=== PATIENT | male | born 1945 | race Caucasian/White ===

== ENCOUNTER → 2017-07-28 | Outpatient (CLI) | payer OTHER ==
[~2017-07-28] MED LIST: ASPEC325 PO; CLOP1TAB15 PO; FLNIN NAE; LEUTEIN PO; METR1GEL3 TOP; NTRGSL/4 UT; SIMV40TA2 PO; lisinopril PO
== END | disposition home or self-care (01) ==
LOC: C.PATHSPEC 16:22
PROVIDERS: ATTEND Physician Assistant
DX: C44.519 Basal cell carcinoma of skin of other part of trunk (principal); L82.1 Other seborrheic keratosis

== ENCOUNTER → 2017-09-29 | Outpatient (CLI) | payer OTHER | END | disposition home or self-care (01) | LOC: C.PATHSPEC 17:57 | PROVIDERS: ATTEND Physician Assistant | DX: C44.91 Basal cell carcinoma of skin, unspecified (principal) ==

== ENCOUNTER 2018-01-06 10:10 | Observation (INO) | payer OTHER ==
[~2018-01-06] VITALS: Ht 180.3 cm; Wt 96.4 kg
[2018-01-06] MEDS ORDERED: ASPIRIN 81 MG CHEW PO STA (10:45)
--- NOTE | 2018-01-06 10:50 | EMERGENCY ROOM VISIT NOTE ---
History Report prepared by Cassie: Nito Bello Under the Supervision of: Dr. Jacobo Nieto M.D. First contact with patient: 10:34 Chief Complaint: CHEST PAIN Stated Complaint: CHEST PAIN History of Present Illness The patient is a 72 year old male who presents to the Emergency Room with complaints of intermittent chest pain that began about a week ago--the symptoms first started with walking. Patient states he also gets intermittent episodes of "tingling" over his whole body with a "lump" feeling in his throat. Patient states these episodes last for about an hour. He states the "lump" does not go away with swallowing. Patient states his chest pain radiates towards the left side of his neck. He states the pain is "3-4/10" in severity and states his pain today is worse than when the pain began originally. He states he also has a "stiff" back. Patient adds he gets warm, diaphoretic, and a "flutter in his upper stomach" during these episodes. Patient states he took one Nitro this morning which gave him relief for 15 minutes. He states he then had another "tingling" episode which caused him to take another Nitro. He states his last Nitro was an hour and a half ago. Patient states he takes Plavix, Losartan, and 81mg Aspirin. He states he took all his medications this morning. Patient adds he had a cardiac stent placed in 2011. Patient states he was at [facility] days ago for similar symptoms and was told to "see how it goes and to keep his Nitro close by". Patient states he has a stress test scheduled in January. He denies any SOB and nausea. Source of History: patient Onset: A week ago Position: neck, chest Quality: other ("tingling") Timing: intermittent Modifying Factors (Relieving): other (Nitro) Associated Symptoms: + diaphoresis, + back pain, No SOB, No nausea Review of Systems See HPI for pertinent positives & negatives. A total of 10 systems reviewed and were otherwise negative. Past Medical & Surgical Medical Problems: (1) Anxiety (2) CAD (coronary artery disease) (3) Chest pain (4) Dyslipidemia (5) Gallbladder problem (6) GERD (gastroesophageal reflux disease) (7) H/O blood clots (8) HTN (hypertension) (9) PSVT (paroxysmal supraventricular tachycardia) Surgical Problems: (1) H/O heart artery stent (2) H/O sinus surgery (3) Hx of cholecystectomy (4) Hx of urethral stricture Family History Diabetes mellitus FH: heart disease FHx: lung disease Social History Smoking Status: Never Smoker Alcohol Use: none Drug Use: none Marital Status: Occupation Status: employed Current/Historical Medications Scheduled Aspirin (Aspirin 81), 1 TAB PO DAILY Atorvastatin (Lipitor), 1 TAB PO HS Clopidogrel (Plavix), 75 MG PO QAM Fluticasone Propionate (Nasal) (Flonase Allergy Relief), 2 SPRAYS ANTONIO DAILY Losartan Potassium (Cozaar), 25 MG PO DAILY Metoprolol Succinate (Metoprolol Succinate ER), 25 MG PO DAILY Nitroglycerin (Nitrostat), 0.4 MG UT PRN Pantoprazole (Pantoprazole Sodium), 1 TAB PO DAILY Sertraline (Zoloft), 1 TAB PO DAILY Allergies Coded Allergies: No Known Allergies (Verified , 01/06/18) Physical Exam Vital Signs Date Time Temp Pulse Resp B/P (MAP) Pulse Ox O2 Delivery O2 Flow Rate FiO2 01/06/18 12:00 52 14 119/73 94 Room Air 01/06/18 11:05 58 01/06/18 10:54 96 Room Air 01/06/18 10:54 66 24 130/77 94 Room Air 01/06/18 10:15 36.8 69 18 165/77 95 Room Air Physical Exam GENERAL: Patient is in no acute distress. HEENT: No acute trauma, normocephalic atraumatic, mucous membranes moist, no nasal congestion, no scleral icterus. NECK: No stridor, no adenopathy, no meningismus, trachea is midline. LUNGS: Clear to auscultation bilaterally, no wheeze, no rhonchi, breath sounds equal. HEART: Without murmurs gallops or rubs, regular rate and rhythm. ABDOMEN: Soft, nontender, bowel sounds positive, no hernias, no peritonitis. EXTREMITIES: No cyanosis or edema, full range of motion of all the joints without pain or difficulty, no signs for acute trauma. NEUROLOGIC: Oriented x 3, no acute motor or sensory deficits, no focal weakness. SKIN: No rash, no jaundice, no diaphoresis. Medical Decision & Procedures ER Provider Diagnostic Interpretation: Radiology results as stated below per my review and radiologist interpretation: CHEST ONE VIEW PORTABLE CLINICAL HISTORY: CHEST PAIN dyspnea COMPARISON STUDY: 10/18/2005 FINDINGS: The bones soft tissues and hemidiaphragms are normal. The cardiomediastinal silhouette is normal. The lungs are clear. The pulmonary vasculature is normal. IMPRESSION: Negative chest. The above report was generated using voice recognition software. It may contain grammatical, syntax or spelling errors. Electronically signed by: Romie Sanchez M.D. 01/06/2018 11:03 AM Laboratory Results 01/06/18 10:35 01/06/18 10:35 Test 01/06/18 10:35 Red Blood Count 4.85 M/uL (4.7-6.1) Mean Corpuscular Volume 89.3 fL (80-100) Mean Corpuscular Hemoglobin 31.3 pg (25-34) Mean Corpuscular Hemoglobin Concent 35.1 g/dl (32-36) RDW Standard Deviation 44.4 fL (36.4-46.3) RDW Coefficient of Variation 13.6 % (11.5-14.5) Mean Platelet Volume 10.3 fL (7.4-10.4) Prothrombin Time 10.7 SECONDS (9.0-12.0) Prothromb Time International Ratio 1.0 (0.9-1.1) Activated Partial Thromboplast Time 24.1 SECONDS (21.0-31.0) Partial Thromboplastin Ratio 0.9 Anion Gap 4.0 mmol/L (3-11) Est Creatinine Clear Calc Drug Dose 86.0 ml/min Estimated GFR () 92.4 Estimated GFR (Non- 79.8 BUN/Creatinine Ratio 14.7 (10-20) Calcium Level 8.5 mg/dl (8.5-10.1) Total Bilirubin 1.2 mg/dl (0.2-1) Aspartate Amino Transf (AST/SGOT) 15 U/L (15-37) Alanine Aminotransferase (ALT/SGPT) 24 U/L (12-78) Alkaline Phosphatase 67 U/L (45-117) Total Protein 7.0 gm/dl (6.4-8.2) Albumin 3.9 gm/dl (3.4-5.0) Globulin 3.1 gm/dl (2.5-4.0) Albumin/Globulin Ratio 1.3 (0.9-2) Laboratory results reviewed by me. Medications Administered Medications (Trade) Dose Ordered Sig/Dottie Route Start Time Stop Time Status Last Admin Dose Admin Aspirin (Aspirin Chew) 324 mg NOW STAT PO 01/06/18 10:45 01/06/18 10:47 DC 01/06/18 10:53 324 MG ECG Per My Interpretation Indication: chest pain Rate (beats per minute): 63 Rhythm: sinus rhythm Findings: PAC, other (No St elevation, no PVCs) ED Course 1036: The patient was evaluated in room B3B. A complete history and physical exam was performed. 1045: Aspirin 324mg PO 1147: I reevaluated the patient and updated him on his findings. 1201: Upon reexamination the patient will be further evaluated. I discussed results and treatment plan with the patient. He verbalizes agreement and understanding. I spoke with Korin BUCKLEY of the [facility]. We discussed the patient's results and findings. The patient will be evaluated by Korin BUCKLEY for further management. Medical Decision Differential Diagnosis: Angina, [place], dysrhythmia, anemia, electrolyte imbalance, reflux, esophageal spasm , and PE. There is no leukocytosis or concerning anemia. No significant electrolyte abnormality, kidney failure or hepatitis. There is no coagulopathy. EKG shows a sinus rhythm with a PAC, no acute ischemia. Cardiac enzyme testing 1 is not consistent with acute cardiac injury. Chest film does not show pneumonia, mediastinal widening or pneumothorax. Patient was given oral aspirin for cardioprotective purposes. He is resting comfortably. The patient presents with chest pain which is escalating over the last week. His symptoms have been primarily exertional. He has a coronary history. I do think a hospital stay is warranted, further cardiac workup is needed. I did speak to the patient and case management. The on-call hospitalist was consulted. Medication Reconcilliation Current Medication List: was personally reviewed by me Blood Pressure Screening Patient's blood pressure: Normal blood pressure Blood pressure disposition: Did not require urgent referral Consults Time Called: 1152 Consulting Physician: Korin BUCKLEY - [facility] Returned Call: 1154 Discussed the patient's case. The patient will be evaluated for further management. Impression Primary Impression: Precordial chest pain Scribe Attestation The scribe's documentation has been prepared under my direction and personally reviewed by me in its entirety. I confirm that the note above accurately reflects all work, treatment, procedures, and medical decision making performed by me. Departure Information Dispostion Being Evaluated By Hospitalist Referrals No Doctor, Assigned (PCP) Forms Call Back Authorization, HOME CARE DOCUMENTATION FORM, IMPORTANT VISIT INFORMATION Patient Instructions My [facility]
[2018-01-06 10:55] LABS: HEMATOCRIT 43.3 % (42-52); HEMOGLOBIN 15.2 g/dL (14.0-18.0); MEAN CELL VOLUME 89.3 fL (80-100); MEAN CORPUSCULAR HEMOGLOBIN 31.3 pg (25-34); MEAN CORPUSCULAR HGB CONC 35.1 g/dl (32-36); MEAN PLATELET VOLUME 10.3 fL (7.4-10.4); PLATELET COUNT 158 K/uL (130-400); RED CELL DISTRIBUTION WIDTH CV 13.6 % (11.5-14.5); RED CELL DISTRIBUTION WIDTH SD 44.4 fL (36.4-46.3); WHITE BLOOD COUNT 6.84 K/uL (4.8-10.8)
[2018-01-06 11:04] LABS: PTT PATIENT 24.1 SECONDS (21.0-31.0)
--- NOTE | 2018-01-06 11:04 | DIAGNOSTIC IMAGING REPORT ---
CHEST ONE VIEW PORTABLE CLINICAL HISTORY: CHEST PAIN dyspnea COMPARISON STUDY: 10/18/2005 FINDINGS: The bones soft tissues and hemidiaphragms are normal. The cardiomediastinal silhouette is normal. The lungs are clear. The pulmonary vasculature is normal. IMPRESSION: Negative chest. The above report was generated using voice recognition software. It may contain grammatical, syntax or spelling errors. Electronically signed by: Romie Sanchez M.D. 01/06/2018 11:03 AM Dictated Date/Time: 01/06/2018 11:02 AM
[2018-01-06 11:24] LABS: ALBUMIN 3.9 gm/dl (3.4-5.0); ALKALINE PHOSPHATASE 67 U/L (45-117); ALT/SGPT 24 U/L (12-78); AST/SGOT 15 U/L (15-37); BLOOD UREA NITROGEN 14 mg/dl (7-18); CALCIUM 8.5 mg/dl (8.5-10.1); CARBON DIOXIDE 27 mmol/L (21-32); CREATININE 0.96 mg/dl (0.60-1.40); GLUCOSE 102 mg/dl (70-99); POTASSIUM 3.9 mmol/L (3.5-5.1); SODIUM 137 mmol/L (136-145)
[2018-01-06] MEDS ORDERED: LOSA1TAB PO (11:34)
[2018-01-06] MEDS ORDERED: TPRSR25 PO (11:34)
[2018-01-06] MEDS ORDERED: FLUT0.15 NAE (11:34)
[2018-01-06] MEDS ORDERED: ASPECOTC PO (11:34)
[2018-01-06 12:50] VITALS: O2SAT 95
[2018-01-06] MEDS ORDERED: ONDANSETRON INJ 2 MG/ML 2 ML VIAL IV PRN (13:15)
[2018-01-06] MEDS ORDERED: ACETAMINOPHEN 325 MG TAB PO PRN (13:15)
[2018-01-06] MEDS ORDERED: ALUMINUM/MAGNESIUM/SIMETH (MAALOX MAX) 30 ML UDC PO PRN (13:15)
[2018-01-06] MEDS ORDERED: NITROGLYCERIN 0.4 MG SL PER TAB CHARGE SL PRN (13:15)
[2018-01-06] MEDS ORDERED: POLYETHYLENE (MIRALAX) 17 GM PACK PO PRN (13:15)
[2018-01-06 13:30] VITALS: BP 140/88; PULSE 62; TEMP 36.7; Ht 180.3 cm; Wt 96.4 kg
[2018-01-06] MEDS ORDERED: LPT40 PO (13:50)
[2018-01-06] MEDS ORDERED: SERT25TA PO (13:50)
[2018-01-06] MEDS ORDERED: PANT1TAB4 PO (13:50)
[2018-01-06] MEDS ORDERED: ASPI-435 PO (13:50)
[2018-01-06] MEDS ORDERED: IV FLUIDS COMPLETED PRN (14:00)
[2018-01-06] MEDS: ENOXAPARIN 40 MG/0.4 ML SYR SC SCH (14:24)
--- NOTE | 2018-01-06 14:25 | History and Physical ---
History & Physical Date & Time of Service: Jan 06, 2018 at 13:51 Chief Complaint: Chest Pain Primary Care Physician: Luis A Ortega M.D.(YAMILETH) History of Present Illness Source: patient, clinic records, hospital records Pt is 72 y/o M with PMH CAD s/p stent to LAD in 2011, PSVT, HTN, HLD, GERD, anxiety presented to ER with c/o CP. Patient states today at approximately 9 AM was at work when started with burning sensation to chest and throat. Also reports sensation of something stuck in his throat. He took 1 nitro with some relief and took second nitro approximately 15-20 minutes later with resolution of symptoms. Patient has been symptom-free since. Patient reports the past week has been having intermittent chest burning and aching sensation to throat and neck. Patient states 1 week ago was walking at work when he became dizzy, diaphoretic and had burning sensation to throat. Also reports last week was push mowing the lawn and developed chest heaviness in the neck. Patient states he tried nitro at that time without relief. Reports symptoms resolved after 1-2 hours of rest. States had another episode when he was sitting and he thinks when he started doing something "forgot about it or it went away". Patient states 5 days ago he was sitting when he felt a palpitation that lasted a couple seconds. He did not have any associated CP/SOB /dizziness at that time. He denies any other recurrent palpitations since. He states he has been able to eat and drink without any dysphasia or dysphagia or food bolus sensation. The intermittent neck & chest sensation over the past week occurs not in relation to eating. He reports prior to his stent placement in past he had similar sensation to throat. History stress echo 06/2016: No evidence of ischemia, EF: 55-59%. Denies fever/chills, diaphoresis, N/V/D/C, PUENTE, syncope, vision changes, SOB, orthopnea, cough, sore throat, choking, otalgia, rhinorrhea, abdominal pain, paresthesias, extremity weakness, extremity edema, rashes, urinary symptoms, weight loss. Pt was seen at cardiology clinic 01/03/18 and is scheduled for stress test in a couple of weeks. Past Medical/Surgical History Medical Problems: (1) Anxiety Status: Chronic (2) CAD (coronary artery disease) Status: Chronic (3) Dyslipidemia Status: Chronic (4) Gallbladder problem Status: Resolved (5) GERD (gastroesophageal reflux disease) Status: Chronic (6) HTN (hypertension) Status: Chronic (7) PSVT (paroxysmal supraventricular tachycardia) Status: Chronic Surgical Problems: (1) H/O heart artery stent Permanent Comment: stent to LAD - 2011 Status: Resolved (2) H/O sinus surgery Status: Resolved (3) Hx of cholecystectomy Status: Resolved (4) Hx of urethral stricture Permanent Comment: Surgical repair at [facility] [place] 2016 Status: Resolved Family History Diabetes mellitus FH: heart disease FHx: lung disease Social History Smoking Status: Never Smoker Smokeless Tobacco Use: No Alcohol Use: 1 beer a week Drug Use: none Marital Status: Housing status: lives with family Occupational Status: employed Immunizations History of Influenza Vaccine: Yes Influenza Vaccine Date: Jun 30, 2010 History of Tetanus Vaccine?: UTD Tetanus Immunization Date: Jun 30, 2010 History of Pneumococcal: Yes Pneumococcal Date: Aug 10, 2000 History of Hepatitis B Vaccine: Unknown Hepatitis Immunization Date: October 19, 1999 Allergies Coded Allergies: No Known Allergies (Verified , 01/06/18) Home Medications Scheduled Aspirin (Aspirin 81), 1 TAB PO DAILY Atorvastatin (Lipitor), 1 TAB PO HS Clopidogrel (Plavix), 75 MG PO QAM Fluticasone Propionate (Nasal) (Flonase Allergy Relief), 2 SPRAYS ANTONIO DAILY Isosorbide Mononitrate (Isosorbide Mononitrate ER), 15 MG PO QAM Losartan Potassium (Cozaar), 25 MG PO DAILY Metoprolol Succinate (Metoprolol Succinate ER), 25 MG PO DAILY Nitroglycerin (Nitrostat), 0.4 MG UT PRN Pantoprazole (Pantoprazole Sodium), 1 TAB PO DAILY Sertraline (Zoloft), 1 TAB PO DAILY Review of Systems See HPI for pertinent positives & negatives. All other systems reviewed and were otherwise negative Physical Exam Vital Signs Date Time Temp Pulse Resp B/P (MAP) Pulse Ox O2 Delivery O2 Flow Rate FiO2 01/06/18 13:30 36.7 62 18 140/88 Room Air 01/06/18 12:50 51 18 128/75 95 01/06/18 12:00 52 14 119/73 94 Room Air 01/06/18 11:05 58 8/2/18 10:54 96 Room Air 01/06/18 10:54 66 24 130/77 94 Room Air 01/06/18 10:15 36.8 69 18 165/77 95 Room Air General Appearance: WD/WN, no apparent distress Head: normocephalic, atraumatic Eyes: normal inspection, sclerae normal ENT: hearing grossly normal, pharynx normal, + pertinent finding (mucous membranes moist) Neck: supple, trachea midline Respiratory/Chest: chest non-tender, lungs clear, normal breath sounds, no respiratory distress Cardiovascular: regular rate, rhythm, no murmur Abdomen/GI: normal bowel sounds, non tender, soft Extremities/Musculoskelatal: normal capillary refill, no pedal edema, normal range of motion Neurologic/Psych: alert, normal mood/affect, oriented x 3 Skin: warm/dry Diagnostics Laboratory Results Results Past 24 Hours Test 01/06/18 10:35 Range/Units White Blood Count 6.84 4.8-10.8 K/uL Red Blood Count 4.85 4.7-6.1 M/uL Hemoglobin 15.2 14.0-18.0 g/dL Hematocrit 43.3 42-52 % Mean Corpuscular Volume 89.3 80-100 fL Mean Corpuscular Hemoglobin 31.3 25-34 pg Mean Corpuscular Hemoglobin Concent 35.1 32-36 g/dl RDW Standard Deviation 44.4 36.4-46.3 fL RDW Coefficient of Variation 13.6 11.5-14.5 % Platelet Count 158 130-400 K/uL Mean Platelet Volume 10.3 7.4-10.4 fL Prothrombin Time 10.7 9.0-12.0 SECONDS Prothromb Time International Ratio 1.0 0.9-1.1 Activated Partial Thromboplast Time 24.1 21.0-31.0 SECONDS Partial Thromboplastin Ratio 0.9 Sodium Level 137 136-145 mmol/L Potassium Level 3.9 3.5-5.1 mmol/L Chloride Level 106 98-107 mmol/L Carbon Dioxide Level 27 21-32 mmol/L Anion Gap 4.0 3-11 mmol/L Blood Urea Nitrogen 14 7-18 mg/dl Creatinine 0.96 0.60-1.40 mg/dl Est Creatinine Clear Calc Drug Dose 86.0 ml/min Estimated GFR () 92.4 Estimated GFR (Non- 79.8 BUN/Creatinine Ratio 14.7 10-20 Random Glucose 102 70-99 mg/dl Calcium Level 8.5 8.5-10.1 mg/dl Total Bilirubin 1.2 0.2-1 mg/dl Aspartate Amino Transf (AST/SGOT) 15 15-37 U/L Alanine Aminotransferase (ALT/SGPT) 24 12-78 U/L Alkaline Phosphatase 67 45-117 U/L Troponin I < 0.015 0-0.045 ng/ml Total Protein 7.0 6.4-8.2 gm/dl Albumin 3.9 3.4-5.0 gm/dl Globulin 3.1 2.5-4.0 gm/dl Albumin/Globulin Ratio 1.3 0.9-2 Diagnostic Radiology CXR: IMPRESSION: Negative chest. EKG EKG: sinus rhythm, rate 63, PACs Impression Assessment and Plan Pt is 72 y/o M with PMH CAD s/p stent to LAD in 2011, PSVT, HTN, HLD, GERD, anxiety presented to ER with c/o intermittent chest and throat/neck pressure/ burning sensation, occurs with exertion or rest. CHEST PAIN R/O ACS. Risk factors: HTN, hyperlipidemia, CAD This morning around 9AM took 2 SL nitro with relief of symptoms and no recurrent CP. Denies SOB. In ER vitals stable, initial troponin negative, no EKG changes. Given 324mg ASA. -Monitor Vitals -Repeat EKG in am -Will trend troponin -echo -lipid panel, continue statin -continue ASA, plavix, metoprolol -Nitro prn CP and repeat EKG for CP -NPO after midnight for possible stress test in am -Cardiology consult HTN Stable -continue losartan, metoprolol H/O PSVT current sinus rhythm -tele to monitor DYSLIPIDEMIA -continue atorvastatin GERD -continue PPI ANXIETY -continue sertraline DVT Prophylaxis -lovenox SQ Admit tele Full Code as per discussion with pt Follows with Dr Ortega for routine care Pt was seen with Dr Meredith. See addendum Attending Addendum Pt was seen and examined. Agreed with Cydney SMITH exam, assessment and plan. 72 y/o M with PMH CAD s/p stent to LAD in 2011, PSVT, HTN, HLD, GERD, anxiety presented to ER with c/o chest pain. Exam General- No acute distress Head- atraumatic Eyes- PERRL, EOMI ENT- oropharynx clear Neck- supple, no JVD Lungs- No wheezing Heart- regular rhythm Abdomen- normal bowel sounds, soft Extremities- no calf tenderness Neuro- alert, oriented x 3; PERRL, EOMI; no facial palsy Skin- warm & dry A/p CHEST PAIN R/O ACS. Risk factors: HTN, hyperlipidemia, CAD initial troponin negative EKG showed no ischemic changes Will Trend troponin Repeat EKG in am Will check echo in am Continue ASA, plavix, metoprolol and statin Will keep NPO after midnight for possible stress test in am Cardiology consult Please refer to Cydney PAC documentation for other problems. MD Viri Advanced Directives Existing Living Will: No Existing Power of Switchboard Operator Supervisor: No Resuscitation Status VTE Prophylaxis Will order VTE Prophylaxis: Yes Additional Copies To Luis A Ortega M.D.(YAMILETH)
--- NOTE | 2018-01-06 15:44 | Cardiology Consultation ---
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 The patient's recent cardiac symptoms date back to about a week ago. At work, his desk is about 400 feet from their laboratory. He was walking to discuss something with a coworker and felt lightheadedness, heavy perspiration, and a lump in his throat. Symptoms subsequently improved with resting. In the meantime he notes that he has had waxing and waning symptoms. He describes one day he will have a day where everything is normal, and on another day, he will feel generalized lightheadedness, weakness, and an intermittent throat discomfort. He states that the throat discomfort is reminiscent of his past anginal symptoms that prompted his cardiac stent in 2011. This morning he woke up with a burning sensation in his chest and throat. He took a sublingual nitroglycerin with apparent relief. By the time he arrived to the emergency room he was free of symptoms. EKG and troponins have been negative 1 thus far. He is feeling completely asymptomatic at present during my assessment of him in room 210. The patient's primary electrical timing device calibrator is Dr. Nito Betancur. Patient has a history of coronary heart disease and underwent drug-eluting stent to the LAD in 2011 at [facility]. He has a known diagonal branch that has been jailed at the time of the initial stent placement in August,. Due to recurrent angina, the patient underwent cardiac catheterization with plain balloon angioplasty to the diagonal vessel at [facility] in November,. The cardiac catheterization at [facility] was performed via the right femoral artery. Past Medical/Surgical History Problem List: Medical Problems: (1) Anxiety (2) CAD (coronary artery disease) (3) Chest pain (4) Dyslipidemia (5) Gallbladder problem (6) GERD (gastroesophageal reflux disease) (7) H/O blood clots (8) HTN (hypertension) (9) PSVT (paroxysmal supraventricular tachycardia) Surgical Problems: (1) H/O heart artery stent (2) H/O sinus surgery (3) Hx of cholecystectomy (4) Hx of urethral stricture History Social History: The patient is a lifelong non-smoker Denies alcohol use Family History: Family history of heart disease in his father and maternal grandfather. Review Of Systems Point review systems is reviewed and is negative with the exception of that above Allergies Coded Allergies: No Known Allergies (Verified , 01/06/18) Medications Reported Home Medications Medications Dose Route/Sig Max Daily Dose Days Date Category Zoloft (Sertraline HCl) 25 Mg Tab 1 Tab PO DAILY 30 01/06/18 Reported Pantoprazole Sodium (Pantoprazole) 40 Mg Tab 1 Tab PO DAILY 01/06/18 Reported Lipitor (Atorvastatin Calcium) 40 Mg Tab 1 Tab PO HS 01/06/18 Reported Aspirin 81 (Aspirin) 81 Mg Tab 1 Tab PO DAILY 01/06/18 Reported Metoprolol Succinate ER (Metoprolol Succinate) 25 Mg Tabcr 25 Mg PO DAILY 01/06/18 Reported Cozaar (Losartan Potassium) 25 Mg Tab 25 Mg PO DAILY 01/06/18 Reported Flonase Allergy Relief (Fluticasone Propionate (Nasal)) 50 Mcg/Act Spr 2 Sprays ANTONIO DAILY 01/06/18 Reported Nitrostat (Nitroglycerin) 0.4 Mg Tab 0.4 Mg UT PRN 08/30/11 Reported Plavix (Clopidogrel Bisulfate) 75 Mg Tab 75 Mg PO QAM 08/30/11 Reported Physical Exam Vital Signs (Last 8hrs): Last 8 Hrs Date Time Temp Pulse Resp B/P (MAP) Pulse Ox O2 Delivery O2 Flow Rate FiO2 01/06/18 14:15 Room Air 01/06/18 13:30 36.7 62 18 140/88 Room Air 01/06/18 12:50 51 18 128/75 95 01/06/18 12:00 52 14 119/73 94 Room Air 01/06/18 11:05 58 01/06/18 10:54 96 Room Air 01/06/18 10:54 66 24 130/77 94 Room Air 01/06/18 10:15 36.8 69 18 165/77 95 Room Air General Appearance: Alert and Oriented x3. NAD. Head: Normocephalic Atraumatic. Eyes: PERRLA, EOMI, conjunctiva and sclera clear Neck: Supple. No carotid bruits noted. No JVD. No HJD. Respiratory: Breath sounds clear to auscultation bilaterally. No w/r/r. Cardiovascular: Reg rate and rhythm. S1 and S2 noted. No murmurs, rubs, gallops. PMI non displace. Abdomen: Normal bowel sounds, soft nontender. no abdominal bruits. Extremities: No edema, no clubbing or cyanosis. distal pulses 2/4 bilaterally. Neuro: No focal deficits. Psychiatric: Normal affect. Data Last 24 Hours Test 01/06/18 10:35 White Blood Count 6.84 K/uL Red Blood Count 4.85 M/uL Hemoglobin 15.2 g/dL Hematocrit 43.3 % Mean Corpuscular Volume 89.3 fL Mean Corpuscular Hemoglobin 31.3 pg Mean Corpuscular Hemoglobin Concent 35.1 g/dl RDW Standard Deviation 44.4 fL RDW Coefficient of Variation 13.6 % Platelet Count 158 K/uL Mean Platelet Volume 10.3 fL Prothrombin Time 10.7 SECONDS Prothromb Time International Ratio 1.0 Activated Partial Thromboplast Time 24.1 SECONDS Partial Thromboplastin Ratio 0.9 Sodium Level 137 mmol/L Potassium Level 3.9 mmol/L Chloride Level 106 mmol/L Carbon Dioxide Level 27 mmol/L Anion Gap 4.0 mmol/L Blood Urea Nitrogen 14 mg/dl Creatinine 0.96 mg/dl Est Creatinine Clear Calc Drug Dose 86.0 ml/min Estimated GFR () 92.4 Estimated GFR (Non- 79.8 BUN/Creatinine Ratio 14.7 Random Glucose 102 mg/dl Calcium Level 8.5 mg/dl Total Bilirubin 1.2 mg/dl Aspartate Amino Transf (AST/SGOT) 15 U/L Alanine Aminotransferase (ALT/SGPT) 24 U/L Alkaline Phosphatase 67 U/L Troponin I < 0.015 ng/ml Total Protein 7.0 gm/dl Albumin 3.9 gm/dl Globulin 3.1 gm/dl Albumin/Globulin Ratio 1.3 Initial EKG revealed sinus rhythm without ST changes. Echocardiogram performed at the bedside reviewed independently revealed normal left ventricular wall motion and normal LVEF. Mild mitral regurgitation was present. Assessment & Plan Impression: 72-year-old male Recent throat and chest tightness History of coronary heart disease status post drug-eluting stent to the LAD in 2011, and subsequent plain balloon angioplasty to a jailed diagonal, then plain balloon angioplasty to the diagonal to place through the previously placed stent in November, History of past paroxysmal supraventricular tachycardia Dyslipidemia Hypertension Recommendations: The patient had previously been seen in our office several days ago on 01/03/18 for similar symptoms. In the meantime, he presented to the hospital via the emergency room. Cardiac enzymes are negative 1. We will plan on observing the patient on the telemetry floor with serial cardiac enzymes and EKG. Patient will be made n.p.o. after midnight except for medications. Resting echocardiogram revealed no resting wall motion abnormalities. It is noted that in June 2010 he had an outpatient stress echocardiogram with no evidence of inducible ischemia having achieved 9 minutes of exercise under standard Lukasz protocol. Further workup will be determined based on his progress perhaps with stress testing versus cardiac catheterization.
[2018-01-06] MEDS ORDERED: PERFLUTREN LIPID MICROSPHERE (DEFINITY) IV ONE (15:54)
--- NOTE | 2018-01-06 17:25 | ECHOCARDIOGRAM REPORT ---
*NOTICE TO RECEIVING CONSTITUTION PARTY AGENCY This information is strictly Confidential and protected under [place] law. [place] law prohibits you from making any further disclosure of this information unless further disclosure is expressly permitted by the written consent of the person to whom it pertains or is authorized by law. A general authorization for the release of medical or other information is not sufficient for this purpose. Hospital accepts no responsibility if the information is made available to any other person, INCLUDING THE PATIENT. Interpretation Summary * Name: Hannah NAPOLES Study Date: 01/06/2018 03:19 PM BP: 140/88 mmHg * Patient Location: .2E\S\E210\S\1 HR: 62 * : 1945 (M/d/yyyy) Gender: Male Height: 71 in * Age: 72 yrs Ethnicity: CA Weight: 215 lb * Ordering Physician: Cydney Davenport * Referring Physician: Self, Referred * Performed By: Eric Gamez RCS * * Reason For Study: Chest Pain * BSA: 2.2 m2 * -- Conclusions -- * Echocardiogram is technically adequate for the referral indication. * There is mild concentric left ventricular hypertrophy. * The left ventricular wall motion is normal. * Ejection Fraction = 60-65%. * There is mild mitral regurgitation. * Grade 2 diastolic dysfunction is present. Procedure Details * A complete two-dimensional transthoracic echocardiogram was performed (2D, M-mode, Doppler and color flow Doppler). * A contrast injection of Definity was performed to improve assessment of LV function. * Contrast was injected into an intravenous site in the right arm. * One vial of Definity ultrasound contrast was diluted in normal saline to a total volume of 10 ml. A total of '1' ml of solution was administered during imaging. * Lot # [id number] of Definity utilized for procedure. * Expiration date 1jul. * The attending nurse who injected the contrast agent was good Reeder RN. Left Ventricle * The left ventricle is normal in size. * There is mild concentric left ventricular hypertrophy. * Ejection Fraction = 60-65%. * Left ventricular systolic function is normal. * The left ventricular wall motion is normal. Right Ventricle * The right ventricular cavity was not well-visualized but was of grossly normal size and systolic function on limited visualization. Atria * The left atrial size is normal. * Right atrial size is normal. * There is no evidence of atrial septal defect, but resolution does not allow assessment for a patent foramen ovale. Mitral Valve * The mitral valve is normal. * There is no mitral valve stenosis. * There is mild mitral regurgitation. Tricuspid Valve * The tricuspid valve is normal. * There is no tricuspid stenosis. * Significant tricuspid regurgitation is absent. Aortic Valve * The aortic valve is trileaflet. * Aortic stenosis is absent. * There is no significant aortic regurgitation. Pulmonic Valve * The pulmonary valve is not well seen, but the Doppler examination is normal without significant regurgitation or stenosis. Great Vessels * The aortic root and proximal ascending aorta are normal sized. Pericardium/Pleural * There is no pericardial effusion. Great Vessels * Normal inferior vena cava diameter and respiratory variation suggests normal central venous pressure. Left Ventricular Diastolic Function * Grade 2 diastolic dysfunction is present. MMode 2D Measurements and Calculations IVSd 1.1 cm IVSs 1.5 cm LVIDd 5.3 cm LVIDs 3.5 cm LVPWd 1.1 cm LVPWs 1.3 cm IVS/LVPW 1.0 FS 34.6 % EDV(Teich) 135.2 ml ESV(Teich) 49.7 ml EF(Teich) 63.3 % EDV(cubed) 148.6 ml ESV(cubed) 41.6 ml EF(cubed) 72.0 % % IVS thick 33.9 % % LVPW thick 17.2 % LV mass(C)d 237.7 grams LV mass(C)dI 109.3 grams/m\S\2 LV mass(C)s 175.8 grams LV mass(C)sI 80.8 grams/m\S\2 SV(Teich) 85.5 ml SI(Teich) 39.3 ml/m\S\2 SV(cubed) 107.0 ml SI(cubed) 49.2 ml/m\S\2 Ao root diam 3.8 cm Ao root area 11.3 cm\S\2 ACS 2.0 cm LA dimension 3.8 cm asc Aorta Diam 3.5 cm LA/Ao 0.99 EDV(MOD-sp4) 124.7 ml ESV(MOD-sp4) 47.8 ml EF(MOD-sp4) 61.6 % EDV(MOD-sp2) 120.1 ml ESV(MOD-sp2) 21.8 ml EF(MOD-sp2) 81.8 % SV(MOD-sp4) 76.9 ml SI(MOD-sp4) 35.4 ml/m\S\2 SV(MOD-sp2) 98.3 ml SI(MOD-sp2) 45.2 ml/m\S\2 Doppler Measurements and Calculations MV E max yesi 85.9 cm/sec MV A max yesi 56.9 cm/sec MV E/A 1.5 MV P1/2t max yesi 86.4 cm/sec MV P1/2t 74.5 msec MVA(P1/2t) 3.0 cm\S\2 MV dec slope 340.0 cm/sec\S\2 MV dec time 0.25 sec Ao V2 max 111.7 cm/sec Ao max PG 5.0 mmHg Ao max PG (full) 1.2 mmHg LV V1 max PG 3.8 mmHg LV V1 max 97.8 cm/sec PA V2 max 83.0 cm/sec PA max PG 2.8 mmHg PI max yesi 134.8 cm/sec PI max PG 7.3 mmHg PI dec slope 86.7 cm/sec\S\2 PI P1/2t 455.4 msec TR max yesi 206.1 cm/sec
[2018-01-06 18:48] VITALS: BP 128/63; PULSE 54; TEMP 37; O2SAT 95
[2018-01-06 19:51] VITALS: BP 161/81; PULSE 59; TEMP 36.7; O2SAT 95
[2018-01-06] MEDS ORDERED: ATORVASTATIN 40 MG TAB PO SCH (21:00)
[2018-01-06 23:35] VITALS: BP 130/71; PULSE 51; TEMP 36.9; O2SAT 95
[2018-01-07 03:34] VITALS: BP 130/71; PULSE 56; TEMP 36.8; O2SAT 95
[2018-01-07 06:19] LABS: HEMATOCRIT 41.4 % (42-52); HEMOGLOBIN 14.5 g/dL (14.0-18.0); MEAN CORPUSCULAR HEMOGLOBIN 31.2 pg (25-34); MEAN PLATELET VOLUME 10.2 fL (7.4-10.4); PLATELET COUNT 139 K/uL (130-400); RED CELL DISTRIBUTION WIDTH CV 13.7 % (11.5-14.5); RED CELL DISTRIBUTION WIDTH SD 44.4 fL (36.4-46.3); WHITE BLOOD COUNT 6.34 K/uL (4.8-10.8)
[2018-01-07 07:04] LABS: CALCIUM 8.5 mg/dl (8.5-10.1); CREATININE 0.96 mg/dl (0.60-1.40)
[2018-01-07 07:58] VITALS: BP 122/73; PULSE 59; TEMP 36.9; O2SAT 96
[2018-01-07] MEDS ORDERED: PANTOprazole SOD 40 MG TAB PO SCH (09:00)
[2018-01-07] MEDS ORDERED: SERTRALINE HCL 50 MG TAB PO SCH (09:00)
[2018-01-07] MEDS ORDERED: LOSARTAN POTASSIUM 25 MG TAB PO SCH (09:00)
[2018-01-07] MEDS ORDERED: METOPROLOL SUCC 25MG EXT REL TAB PO SCH (09:00)
[2018-01-07] MEDS ORDERED: CLOPIDOGREL BISULFATE 75 MG TAB PO SCH (09:00)
[2018-01-07] MEDS ORDERED: ASPIRIN 81 MG ECTAB PO SCH (09:00)
[2018-01-07] MEDS ORDERED: FLUTICASONE PROPIONATE NA SPR 16 GM BTL NAE SCH (09:00)
--- NOTE | 2018-01-07 10:26 | Exercise Stress Test Report ---
Exercise Stress Test Report Exercise Stress Test Report Date of Service: 01/07/18 Exercise Stress Test Report Non ischemic stress echo, having completed 9 minutes on a Lukasz protocol.
--- NOTE | 2018-01-07 10:31 | Cardiology Follow-Up ---
Subjective General Date of Service: Jan 07, 2018. Chief Complaint: follow up chest pain Pt evaluation today including: conversation w/ patient, physical exam History of Present Illness The patient is a 72 year old male seen prior to , during, and post stress echo. No recurrence of throat or chest discomfort overnight. Serial troponin negative. Allergies Coded Allergies: No Known Allergies (Verified , 01/06/18) Social History Smoking Status: Never Smoker Hx Tobacco Use In Past Year?: No Hx Alcohol Use - Type And Amou: Yes (OCCASIONAL BEER) Hx Substance Use - Type And Am: No Problem List Medical Problems: (1) Precordial chest pain Status: Acute Physical Exam Vital Signs Last Vital Signs Documentation Date Time Temp Pulse Resp B/P (MAP) Pulse Ox O2 Delivery O2 Flow Rate FiO2 01/07/18 07:58 36.9 59 16 122/73 (89) 96 Room Air Physical Exam Constitutional: Level of Distress: NAD Head: normocephalic Neck: supple, trachea midline Lungs: Auscultation: no wheezing, no rales/crackles, no rhonchi Cardiovascular: Heart Auscultation: RRR, no murmurs, no rubs, no gallops Abdomen: Inspection & Palpation: soft, non-distended Extremities: no edema Neurologic: Gait & Station: pertinent finding (no focal deficits ) Assessment and Plan Assessment and Plan Impression: 1. Atypical chest , throat pain. Negative serial EKGs and negative troponins. Non ischemic [place], having achieved high peak work load. Symptoms not reproduced. Plan: Perhaps has microvascular dysfunction, however , stress test suggest no hemodynamically significant epicardial coronary obstruction. Recommend adding Imdur, 30 mg, 1/2 tablet daily in am for 1 week , then increase to a full 30 mg tablet daily as tolerated. Will cancel outpt stress test. Keep follow up visit with Dr Betancur as scheduled for 02/03. Laboratory Results Last 24 Hours Test 01/06/18 10:35 01/06/18 16:12 01/06/18 22:31 01/07/18 06:02 White Blood Count 6.84 K/uL 6.34 K/uL Red Blood Count 4.85 M/uL 4.65 M/uL Hemoglobin 15.2 g/dL 14.5 g/dL Hematocrit 43.3 % 41.4 % Mean Corpuscular Volume 89.3 fL 89.0 fL Mean Corpuscular Hemoglobin 31.3 pg 31.2 pg Mean Corpuscular Hemoglobin Concent 35.1 g/dl 35.0 g/dl RDW Standard Deviation 44.4 fL 44.4 fL RDW Coefficient of Variation 13.6 % 13.7 % Platelet Count 158 K/uL 139 K/uL Mean Platelet Volume 10.3 fL 10.2 fL Prothrombin Time 10.7 SECONDS Prothromb Time International Ratio 1.0 Activated Partial Thromboplast Time 24.1 SECONDS Partial Thromboplastin Ratio 0.9 Sodium Level 137 mmol/L 139 mmol/L Potassium Level 3.9 mmol/L 4.0 mmol/L Chloride Level 106 mmol/L 104 mmol/L Carbon Dioxide Level 27 mmol/L 28 mmol/L Anion Gap 4.0 mmol/L 7.0 mmol/L Blood Urea Nitrogen 14 mg/dl 15 mg/dl Creatinine 0.96 mg/dl 0.96 mg/dl Est Creatinine Clear Calc Drug Dose 86.0 ml/min 84.8 ml/min Estimated GFR () 92.4 92.4 Estimated GFR (Non- 79.8 79.8 BUN/Creatinine Ratio 14.7 15.8 Random Glucose 102 mg/dl 93 mg/dl Calcium Level 8.5 mg/dl 8.5 mg/dl Total Bilirubin 1.2 mg/dl Aspartate Amino Transf (AST/SGOT) 15 U/L Alanine Aminotransferase (ALT/SGPT) 24 U/L Alkaline Phosphatase 67 U/L Troponin I < 0.015 ng/ml < 0.015 ng/ml < 0.015 ng/ml Total Protein 7.0 gm/dl Albumin 3.9 gm/dl Globulin 3.1 gm/dl Albumin/Globulin Ratio 1.3 Magnesium Level 2.1 mg/dl Triglycerides Level 91 mg/dl Cholesterol Level 95 mg/dl HDL Cholesterol 40 mg/dl LDL Cholesterol, Calculated 37 mg/dl VLDL Cholesterol, Calculated 18 mg/dl Cholesterol/HDL Ratio 2.4
[2018-01-07] MEDS ORDERED: ISOSORBIDE MONONITRATE 30 MG TABCR PO ONE (10:32)
[2018-01-07 11:50] VITALS: BP 123/74; PULSE 64; TEMP 36.7; O2SAT 93
[2018-01-07 12:13] VITALS: BP 123/74; PULSE 64; TEMP 36.7; O2SAT 93
[2018-01-07] MEDS ORDERED: PERFLUTREN LIPID MICROSPHERE (DEFINITY) IV ONE (12:21)
--- NOTE | 2018-01-07 12:57 | Progress Note ---
Medicine Progress Note Date & Time of Visit: Jan 07, 2018 at 12:26. Subjective Pt was seen and examined Sitting in bed with no distress at bedside He had stress echo done this morning Pt said that he feels fine He does not have any chest pain, palpitation, dizziness, throat pain and SOB Objective Last 8 Hrs Date Time Temp Pulse Resp B/P (MAP) Pulse Ox O2 Delivery O2 Flow Rate FiO2 01/07/18 12:13 36.7 64 16 93 Room Air 01/07/18 11:50 36.7 64 16 123/74 (90) 93 Room Air 01/07/18 08:00 Room Air 01/07/18 07:58 36.9 59 16 122/73 (89) 96 Room Air Physical Exam: General- No acute distress Head- atraumatic Eyes- PERRL, EOMI ENT- oropharynx clear Neck- supple, no JVD Lungs- clear to auscultation Heart- regular rhythm; no murmur Abdomen- normal bowel sounds, soft Extremities-No calf tenderness Neuro- alert, oriented x 3; PERRL Skin- warm & dry Laboratory Results: Last 24 Hours Test 01/06/18 16:12 01/06/18 22:31 01/07/18 06:02 Troponin I < 0.015 ng/ml < 0.015 ng/ml White Blood Count 6.34 K/uL Red Blood Count 4.65 M/uL Hemoglobin 14.5 g/dL Hematocrit 41.4 % Mean Corpuscular Volume 89.0 fL Mean Corpuscular Hemoglobin 31.2 pg Mean Corpuscular Hemoglobin Concent 35.0 g/dl RDW Standard Deviation 44.4 fL RDW Coefficient of Variation 13.7 % Platelet Count 139 K/uL Mean Platelet Volume 10.2 fL Sodium Level 139 mmol/L Potassium Level 4.0 mmol/L Chloride Level 104 mmol/L Carbon Dioxide Level 28 mmol/L Anion Gap 7.0 mmol/L Blood Urea Nitrogen 15 mg/dl Creatinine 0.96 mg/dl Est Creatinine Clear Calc Drug Dose 84.8 ml/min Estimated GFR () 92.4 Estimated GFR (Non- 79.8 BUN/Creatinine Ratio 15.8 Random Glucose 93 mg/dl Calcium Level 8.5 mg/dl Magnesium Level 2.1 mg/dl Triglycerides Level 91 mg/dl Cholesterol Level 95 mg/dl HDL Cholesterol 40 mg/dl LDL Cholesterol, Calculated 37 mg/dl VLDL Cholesterol, Calculated 18 mg/dl Cholesterol/HDL Ratio 2.4 Assessment & Plan ATYPICAL CHEST PAIN Risk factors HTN, Hyperlipidemia, CAD Troponinx3 negative EKG showed no ischemic changes Had a non ischemic stress echo done today No arrhythmia on tele Continue statin, Metoprolol, aspirin and Plavix Cardiology on board Imdur 15mg adding, will need to titrate to 30mg if able to tolerate Case discussed with cardiology, megan from cardio standpoint to discharge home Follow up with cardiology Dr. Betancur on 02/03 Asymptomatic ECHO * There is mild concentric left ventricular hypertrophy. * The left ventricular wall motion is normal. * Ejection Fraction = 60-65%. * There is mild mitral regurgitation. * Grade 2 diastolic dysfunction is present. HTN Stable Continue losartan, metoprolol H/O PSVT current sinus rhythm Tele to monitor DYSLIPIDEMIA Continue atorvastatin GERD Continue PPI ANXIETY continue sertraline DVT Prophylaxis Lovenox SQ CODE STATUS FULL CODE Disposition Full code Current Inpatient Medications: Current Inpatient Medications Medications (Trade) Dose Ordered Sig/Dottie Route Start Time Stop Time Status Last Admin Dose Admin Enoxaparin Sodium (Lovenox Inj) 40 mg Q24H SC 01/06/18 14:00 02/05/18 13:59 01/06/18 14:24 40 MG Acetaminophen (Tylenol Tab) 650 mg Q4H PRN PO 01/06/18 13:15 02/05/18 13:14 Al Hydrox/Mg Hydrox/Simethicone (Maalox Max Susp) 15 ml Q4H PRN PO 01/06/18 13:15 02/05/18 13:14 Ondansetron HCl (Zofran Inj) 4 mg Q6H PRN IV 01/06/18 13:15 02/05/18 13:14 Nitroglycerin (Nitrostat Tab) 0.4 mg UD PRN SL 01/06/18 13:15 02/05/18 13:14 Aspirin (Ecotrin Tab) 81 mg QAM PO 01/07/18 09:00 02/06/18 08:59 01/07/18 08:51 81 MG Polyethylene (Miralax Powder Packet) 17 gm DAILY PRN PO 01/06/18 13:15 02/05/18 13:14 Miscellaneous (Iv Fluids Completed) 1 ea PRN PRN N/A 01/06/18 14:00 01/06/19 13:59 Atorvastatin Calcium (Lipitor Tab) 40 mg HS PO 01/06/18 21:00 02/05/18 20:59 01/06/18 20:47 40 MG Clopidogrel Bisulfate (plAVix TAB) 75 mg QAM PO 01/07/18 09:00 02/06/18 08:59 01/07/18 08:50 75 MG Fluticasone Propionate (Flonase Nasal [place]) 2 sprays DAILY ANTONIO 01/07/18 09:00 02/06/18 08:59 Losartan Potassium (coZAAR TAB) 25 mg DAILY PO 01/07/18 09:00 02/06/18 08:59 01/07/18 08:49 25 MG Metoprolol Succinate (Toprol Xl Tab) 25 mg DAILY PO 01/07/18 09:00 02/06/18 08:59 01/07/18 08:50 25 MG Pantoprazole Sodium (Protonix Tab) 40 mg DAILY PO 01/07/18 09:00 02/06/18 08:59 01/07/18 08:49 40 MG Sertraline HCl (Zoloft Tab) 25 mg DAILY PO 01/07/18 09:00 02/06/18 08:59 01/07/18 08:49 25 MG Isosorbide Mononitrate (Imdur Ext Rel Tab) 15 mg QAM PO 01/08/18 09:00 01/14/18 08:59 Isosorbide Mononitrate (Imdur Ext Rel Tab) 30 mg QAM PO 01/14/18 09:00 02/13/18 08:59
[2018-01-07] MEDS ORDERED: IMDSR30 PO ×2 (13:05→13:23)
--- NOTE | 2018-01-07 13:15 | Discharge Instructions ---
Discharge Instructions Date of Service Jan 07, 2018. Admission Reason for Admission: Chest Pain Discharge Discharge Diagnosis / Problem: Atypical Chest pain Discharge Goals Goal(s): Decrease discomfort, Improve function, Improve disease control Activity Recommendations Activity Limitations: resume your previous activity (As tolerated) . Instructions / Follow-Up Instructions / Follow-Up Follow up with your primary care provider Dr. Ortega on 01/12 @ 10:45 AM Follow up with cardiology Dr. Betancur on 02/03 @ 9:15 AM Starting on Imdur 15mg daily for 1 week, titrate to 30mg on week 2 if able to tolerate Current Hospital Diet Patient's current hospital diet: AHA Diet (Heart Healthy) Discharge Diet Recommended Diet: AHA Diet (Heart Healthy) Procedures Procedures Performed: Stress Echo Pending Studies Studies pending at discharge: no Laboratory Results Lipid Panel Test 01/07/18 06:02 Range/Units Triglycerides Level 91 0-150 mg/dl Cholesterol Level 95 0-200 mg/dl HDL Cholesterol 40 mg/dl Cholesterol/HDL Ratio 2.4 LDL Cholesterol, Calculated 37 mg/dl Medical Emergencies . Who to Call and When: Medical Emergencies: If at any time you feel your situation is an emergency, please call 911 immediately. . Non-Emergent Contact Non-Emergency issues call your: Primary Care Provider Call Non-Emergent contact if: your pain is worsening, your pain is concerning you, you have any medication questions . . "Provider Documentation" section prepared by Arelis Meredith. .
[2018-01-07] MEDS: ENOXAPARIN 40 MG/0.4 ML SYR SC SCH (14:00)
--- NOTE | 2018-01-07 14:44 | EXERCISE STRESS ECHO ---
*NOTICE TO RECEIVING REPUBLICAN AGENCY This information is strictly Confidential and protected under [place] law. [place] law prohibits you from making any further disclosure of this information unless further disclosure is expressly permitted by the written consent of the person to whom it pertains or is authorized by law. A general authorization for the release of medical or other information is not sufficient for this purpose. Hospital accepts no responsibility if the information is made available to any other person, INCLUDING THE PATIENT. Interpretation Summary * Name: Hannah NAPOLES Study Date: 01/07/2018 08:52 AM BP: 144/76 mmHg * Patient Location: .2E\S\E210\S\1 HR: 57 * : 1945 (M/d/yyyy) Gender: Male Height: 71 in * Age: 72 yrs Ethnicity: [place] Weight: 212 lb * Ordering Physician: Elier Patricia * Referring Physician: Self, Referred * Performed By: Eric Gamez RCS * * Reason For Study: Chest Pain * BSA: 2.2 m2 * -- Conclusions -- * STRESS STUDY: * Normal exercise stress echocardiogram. * No echocardiographic or ECG evidence of myocardial ischemia having achieved heart rate adequate for diagnostic purposes. Procedure Details * ECHOEX, CPT #04551 * A contrast injection of Definity was performed to improve assessment of LV function. * Contrast was injected into an intravenous site in the right arm. * One vial of Definity ultrasound contrast was diluted in normal saline to a total volume of 10 ml. A total of '3' ml of solution was administered during imaging. * Lot # [id number] of Definity utilized for procedure. * Expiration date . * The attending nurse who injected the contrast agent was Gustabo Frias RN. Left Ventricle * The left ventricle is normal in size. There is mild concentric left ventricular hypertrophy. The left ventricular ejection fraction = 60-65%. * The post exercise echocardiogram images were somewhat technically difficult, specifically the apical 3 chamber, however, given the patients above average excercise tolerance, with normal stress ECG response, and no reprodcution of his presenting symtpoms, it is felt that the study is adequate for the referral indication, and represents a low likelihood of underlying obstructive coronary heart disease. * The left ventricular ejection fraction increases normally with stress. The left ventricular end-systolic cavity size reduces post-stress (normal response). The left ventricular wall motion with stress is normal. Stress Parameters * Normal baseline electrocardiogram. * The stress ECG response was normal * No arrhythmia were noted with stress. * The stress portion of this study was personally supervised by the undersigned interpreting physician. * Rest heart rate was '57' BPM. * Rest blood pressure was '144/76' * Maximum heart rate achieved was 151 bpm. * Maximum heart rate was 100 % of maximum age-predicted heart rate. * Maximum blood pressure was '178/79' * Total exercise time was '9:01' * Maximum exercise MET level achieved was '10.4' METS * Maximum treadmill speed was '3.4' miles per hour. * Maximum treadmill elevation was '14'% grade. * Exercise was terminated due to 'fatigue after achieving target heart rate' * Normal blood pressure response to exercise.
[2018-01-08] MEDS ORDERED: ISOSORBIDE MONONITRATE 30 MG TABCR PO SCH (09:00)
--- NOTE | 2018-01-10 07:40 | Discharge Summary ---
Discharge Summary Date of Service Jan 10, 2018. Discharge Summary Admission Date: Jan 06, 2018 at 12:02 Discharge Date: Jan 07, 2018 Discharge Disposition: Home Principal Diagnosis: ATYPICAL CHEST PAIN Secondary Diagnoses/Problems: DYSLIPIDEMIA H/O PSVT HTN GERD ANXIETY Procedures: EXERCISE STRESS TEST CHEST ONE VIEW PORTABLE CLINICAL HISTORY: CHEST PAIN dyspnea COMPARISON STUDY: 10/18/2005 FINDINGS: The bones soft tissues and hemidiaphragms are normal. The cardiomediastinal silhouette is normal. The lungs are clear. The pulmonary vasculature is normal. IMPRESSION: Negative chest. The above report was generated using voice recognition software. It may contain grammatical, syntax or spelling errors. Electronically signed by: Romie Sanchez M.D. 01/06/2018 11:03 AM Dictated Date/Time: 01/06/2018 11:02 AM ECHO Interpretation Summary * Name: Hannah NAPOLES Study Date: 01/06/2018 03:19 PM BP: 140/88 mmHg * Patient Location: [facility] [place]\\S\\E210\\S\\1 HR: 62 * : 1945 (M/d/yyyy) Gender: Male Height: 71 in * Age: 72 yrs Ethnicity: [place] Weight: 215 lb * Ordering Physician: Cydney Davenport * Referring Physician: Self, Referred * Performed By: Eric Gamez RCS * * Reason For Study: Chest Pain * BSA: 2.2 m2 * -- Conclusions -- * Echocardiogram is technically adequate for the referral indication. * There is mild concentric left ventricular hypertrophy. * The left ventricular wall motion is normal. * Ejection Fraction = 60-65%. * There is mild mitral regurgitation. * Grade 2 diastolic dysfunction is present. Procedure Details * A complete two-dimensional transthoracic echocardiogram was performed (2D, M- mode, Doppler and color flow Doppler). * A contrast injection of Definity was performed to improve assessment of LV function. * Contrast was injected into an intravenous site in the right arm. * One vial of Definity ultrasound contrast was diluted in normal saline to a total volume of 10 ml. A total of '1' ml of solution was administered during imaging. * Lot # [id number] of Definity utilized for procedure. * Expiration date . * The attending nurse who injected the contrast agent was good Reeder RN. Left Ventricle * The left ventricle is normal in size. * There is mild concentric left ventricular hypertrophy. * Ejection Fraction = 60-65%. * Left ventricular systolic function is normal. * The left ventricular wall motion is normal. Right Ventricle * The right ventricular cavity was not well-visualized but was of grossly normal size and systolic function on limited visualization. Atria * The left atrial size is normal. * Right atrial size is normal. * There is no evidence of atrial septal defect, but resolution does not allow assessment for a patent foramen ovale. Mitral Valve * The mitral valve is normal. * There is no mitral valve stenosis. * There is mild mitral regurgitation. Tricuspid Valve * The tricuspid valve is normal. * There is no tricuspid stenosis. * Significant tricuspid regurgitation is absent. Aortic Valve * The aortic valve is trileaflet. * Aortic stenosis is absent. * There is no significant aortic regurgitation. Pulmonic Valve * The pulmonary valve is not well seen, but the Doppler examination is normal without significant regurgitation or stenosis. Great Vessels * The aortic root and proximal ascending aorta are normal sized. Pericardium/Pleural * There is no pericardial effusion. Great Vessels * Normal inferior vena cava diameter and respiratory variation suggests normal central venous pressure. Left Ventricular Diastolic Function * Grade 2 diastolic dysfunction is present. Medication Reconciliation New Medications: Isosorbide Mononitrate (Isosorbide Mononitrate ER) 30 Mg Tabcr 15 MG PO QAM for 30 Days Take 1/2 tablet daily in am for 1 week , then increase to a 1 tablet daily as tolerated. Continued Medications: Aspirin (Aspirin 81) 81 Mg Tab 1 TAB PO DAILY Atorvastatin (Lipitor) 40 Mg Tab 1 TAB PO HS Clopidogrel (Plavix) 75 Mg Tab 75 MG PO QAM, 0 Refills Fluticasone Propionate (Nasal) (Flonase Allergy Relief) 50 Mcg/Act Spr 2 SPRAYS ANTONIO DAILY Losartan Potassium (Cozaar) 25 Mg Tab 25 MG PO DAILY, TAB Metoprolol Succinate (Metoprolol Succinate ER) 25 Mg Tabcr 25 MG PO DAILY Nitroglycerin (Nitrostat) 0.4 Mg Tab 0.4 MG UT PRN, 0 Refills Pantoprazole (Pantoprazole Sodium) 40 Mg Tab 1 TAB PO DAILY Sertraline (Zoloft) 25 Mg Tab 1 TAB PO DAILY for 30 Days, #30 TAB 2 Refills Admission Information HPI (per Admitting provider): Pt is 72 y/o M with PMH CAD s/p stent to LAD in 2011, PSVT, HTN, HLD, GERD, anxiety presented to ER with c/o CP. Patient states today at approximately 9 AM was at work when started with burning sensation to chest and throat. Also reports sensation of something stuck in his throat. He took 1 nitro with some relief and took second nitro approximately 15-20 minutes later with resolution of symptoms. Patient has been symptom-free since. Patient reports the past week has been having intermittent chest burning and aching sensation to throat and neck. Patient states 1 week ago was walking at work when he became dizzy, diaphoretic and had burning sensation to throat. Also reports last week was push mowing the lawn and developed chest heaviness in the neck. Patient states he tried nitro at that time without relief. Reports symptoms resolved after 1-2 hours of rest. States had another episode when he was sitting and he thinks when he started doing something "forgot about it or it went away". Patient states 5 days ago he was sitting when he felt a palpitation that lasted a couple seconds. He did not have any associated CP/SOB /dizziness at that time. He denies any other recurrent palpitations since. He states he has been able to eat and drink without any dysphasia or dysphagia or food bolus sensation. The intermittent neck & chest sensation over the past week occurs not in relation to eating. He reports prior to his stent placement in past he had similar sensation to throat. History stress echo 06/2016: No evidence of ischemia, EF: 55-59%. Denies fever/chills, diaphoresis, N/V/D/C, PUENTE, syncope, vision changes, SOB, orthopnea, cough, sore throat, choking, otalgia, rhinorrhea, abdominal pain, paresthesias, extremity weakness, extremity edema, rashes, urinary symptoms, weight loss. Pt was seen at cardiology clinic 01/03/18 and is scheduled for stress test in a couple of weeks. Physical Exam (per Admitting): General Appearance: WD/WN, no apparent distress Head: normocephalic, atraumatic Eyes: normal inspection, sclerae normal ENT: hearing grossly normal, pharynx normal, + pertinent finding (mucous membranes moist) Neck: supple, trachea midline Respiratory/Chest: chest non-tender, lungs clear, normal breath sounds, no respiratory distress Cardiovascular: regular rate, rhythm, no murmur Abdomen/GI: normal bowel sounds, non tender, soft Extremities/Musculoskelatal: normal capillary refill, no pedal edema, normal range of motion Neurologic/Psych: alert, normal mood/affect, oriented x 3 Skin: warm/dry Hospital Course ATYPICAL CHEST PAIN Risk factors HTN, Hyperlipidemia, CAD Troponinx3 negative EKG showed no ischemic changes Had a non ischemic stress echo done today No arrhythmia on tele Continue statin, Metoprolol, aspirin and Plavix Cardiology on board Imdur 15mg adding, will need to titrate to 30mg if able to tolerate Case discussed with cardiologymegan from cardio standpoint to discharge home Follow up with cardiology Dr. Betancur on 02/03 Asymptomatic ECHO * There is mild concentric left ventricular hypertrophy. * The left ventricular wall motion is normal. * Ejection Fraction = 60-65%. * There is mild mitral regurgitation. * Grade 2 diastolic dysfunction is present. HTN Stable Continue losartan, metoprolol H/O PSVT current sinus rhythm Tele to monitor DYSLIPIDEMIA Continue atorvastatin GERD Continue PPI ANXIETY continue sertraline DVT Prophylaxis Lovenox SQ CODE STATUS FULL CODE Disposition Full code Total time spent on discharge = 30 minutes This includes examination of the patient, discharge planning, medication reconciliation, and communication with other providers. Discharge Instructions Discharge Instructions Date of Service Jan 07, 2018. Admission Reason for Admission: Chest Pain Discharge Discharge Diagnosis / Problem: Atypical Chest pain Discharge Goals Goal(s): Decrease discomfort, Improve function, Improve disease control Activity Recommendations Activity Limitations: resume your previous activity (As tolerated) . Instructions / Follow-Up Instructions / Follow-Up Follow up with your primary care provider Dr. Ortega on 01/12 @ 10:45 AM Follow up with cardiology Dr. Betancur on 02/03 @ 9:15 AM Starting on Imdur 15mg daily for 1 week, titrate to 30mg on week 2 if able to tolerate Current Hospital Diet Patient's current hospital diet: AHA Diet (Heart Healthy) Discharge Diet Recommended Diet: AHA Diet (Heart Healthy) Procedures Procedures Performed: Stress Echo Pending Studies Studies pending at discharge: no Laboratory Results Lipid Panel Test 01/07/18 06:02 Range/Units Triglycerides Level 91 0-150 mg/dl Cholesterol Level 95 0-200 mg/dl HDL Cholesterol 40 mg/dl Cholesterol/HDL Ratio 2.4 LDL Cholesterol, Calculated 37 mg/dl Medical Emergencies . Who to Call and When: Medical Emergencies: If at any time you feel your situation is an emergency, please call 911 immediately. . Non-Emergent Contact Non-Emergency issues call your: Primary Care Provider Call Non-Emergent contact if: your pain is worsening, your pain is concerning you, you have any medication questions . . "Provider Documentation" section prepared by Arelis Meredith. . Additional Copies To Luis A Ortega M.D.([email or web address])
[2018-01-14] MEDS ORDERED: ISOSORBIDE MONONITRATE 30 MG TABCR PO SCH (09:00)
== END 2018-01-07 14:30 | disposition home or self-care (01) ==
LOC: C.EDB 10:11 → C.2E 12:02 → ENRESERV 12:23
PROVIDERS: ADMIT Internal Medicine; ATTEND Internal Medicine
DX: R07.89 Other chest pain (principal); E78.5 Hyperlipidemia, unspecified; I10 Essential (primary) hypertension; I47.1 Supraventricular tachycardia; I34.0 Nonrheumatic mitral (valve) insufficiency; K21.9 Gastro-esophageal reflux disease without esophagitis; I25.10 Atherosclerotic heart disease of native coronary artery without angina pectoris; Z98.61 Coronary angioplasty status; Z79.82 Long term (current) use of aspirin; Z90.49 Acquired absence of other specified parts of digestive tract; Z86.718 Personal history of other venous thrombosis and embolism